=== PATIENT | female | born 1955 | race Caucasian/White ===

== ENCOUNTER → 2021-12-29 13:57 | Outpatient (CLI) | payer MEDICARE, MEDICAID, SELFPAY ==
[2021-12-29 14:42] LABS: COVID19 -Nasal RAPID Negative (Negative)
== END ==
PROVIDERS: Referring Provider Orthopaedic Surgery Orthopaedic Surgery of the Spine; Visit Provider Orthopaedic Surgery Orthopaedic Surgery of the Spine
DX: Z01.812 Encounter for preprocedural laboratory examination (principal); Z20.822 Contact with and (suspected) exposure to COVID-19
CPT/HCPCS: 87635; C9803

== ENCOUNTER 2021-12-31 10:24 | Inpatient (IN) | payer MEDICARE, MEDICAID, SELFPAY ==
[2021-12-24 12:29] VITALS: BMI 41.3
[2021-12-31] VITALS (16 sets, daily range): BP systolic 131–157; BP diastolic 77–97; PULSE 69–104; RESP 12–20; TEMP 36.1–36.4; O2SAT 90–97; BMI 41.5; BMI 43.7
--- NOTE | 2021-12-31 | DI.RAD.S_ITS ---
PROCEDURE: XR CERVICAL SPINE 2V OR 3V INDICATIONS: C4-5 C5-6 C6-7 ACDF TECHNIQUE: 3 view(s) of the cervical spine were acquired. COMPARISON: [facility], MR, MR CERVICAL SPINE WITHOUT CONTRAST, 06/05/2021, 12:08. FINDINGS: Intraoperative images demonstrating C4 through C7 anterior fusion is present. Hardware appears intact with good anatomic alignment. No visualized fracture. IMPRESSION: Intraoperative anterior fusion as above. Dictated by: Jayde Mayfield M.D. on 01/01/2022 at 11:51 Approved by: Jayde Mayfield M.D. on 01/01/2022 at 11:52
[2021-12-31] MEDS: LACTATED RINGERS 1,000 ML 42 ML IV ×3 (11:30→16:26)
--- NOTE | 2021-12-31 11:51 | PM.PREOP ---
Pre-operative Note COVID-19 COVID-19 status: Negative Result date/Date tested (Pos, Neg/Pending): 12/30/21 Criteria for continued procedure: Expected advancement of disease process, Possibility delay results in more complex future surgery or treatment, Increased loss of function, Continuing or worsening of significant or severe pain, Deterioration of the patient's condition or overall health and Delay expected to result in less-positive ultimate med/surg outcome Interval Note History & Physical reviewed/Exam performed by Physician: Yes Changes to H&P: No
[2021-12-31] MEDS: ACETAMINOPHEN 325 MG TABLET 975 MG PO (11:52)
[2021-12-31] MEDS: PREGABALIN 75 MG CAPSULE PO (11:52)
--- NOTE | 2021-12-31 12:47 | SUR.OPER ---
Supine, head on gel donut. Arms padded with gel pads, tucked at sides, towel roll under shoulders. Safety belt at thigh. Legs uncrossed. Gel pad under heels.
[2021-12-31] MEDS: CEFAZOLIN 2 GM/100 ML PREMIX 100 ML IV ×2 (13:50→21:19)
[2021-12-31] MEDS: EPINEPHrine 1 MG/ML INJ (15:00)
[2021-12-31] MEDS: BUPIVACAINE 0.25% (PF) VIAL 10 ML INJ (15:02)
--- NOTE | 2021-12-31 15:31 | P.CONS_ITS ---
History of Present Illness Consult details Date Patient Seen: 12/31/21 Chief complaint: Cervival Fusion Anterior Meds Home Medications and Allergies Home Medications Medication Instructions Recorded Confirmed Type acetaminophen 500 mg tablet 500 mg PO DAILY PRN Pain 12/24/21 12/31/21 History clonazepam 1 mg tablet 1 mg PO BID 12/24/21 12/31/21 History naproxen sodium 220 mg capsule 220 mg PO DAILY PRN Pain, headache 12/24/21 12/31/21 History (Aleve) pantoprazole 40 mg tablet,delayed 40 mg PO DAILY 12/24/21 12/31/21 History release sertraline 100 mg tablet 100 mg PO DAILY 12/24/21 12/31/21 History Allergies Allergy/AdvReac Type Severity Reaction Status Date / Time No Known Drug Allergies Allergy Verified 12/31/21 12:06 Exam Vital Signs (past 8 hours): - 12/31/21 11:53 Temperature 97.4 F L Pulse Rate 69 Respiratory Rate 18 Blood Pressure 152/77 H Pulse Oximetry 97 Oxygen Delivery Method Room Air Oxygen Delivery Method Room Air [facility] Medical History (Updated 12/25/21 @ 10:33 by Joselin Jain RN) Acid reflux Anxiety Breast cancer, left (~2019) Cervical spinal stenosis Depression Diverticulitis Easy bruisability High cholesterol Nerve pain Sciatica Surgical History (Updated 12/25/21 @ 10:33 by Joselin Jain RN) History of hysterectomy (2006) Hx of bilateral cataract extraction Hx of breast reduction, elective Hx of colonoscopy (06/06/21) Hx of tubal ligation Social History household members: significant other and none Tobacco & Substance Use Smoking Status: Never smoker alcohol intake: former Assessment & Plan Time Spent With Patient Critical Care time: I spent a total of [] minutes of critical care time on this patient's care today; this time is exclusive of procedural time.
--- NOTE | 2021-12-31 16:35 | PM.OP.1 ---
Operative Date/Time/Diagnoses Date of procedure: 12/31/21 Time of procedure: 13:50 Pre-op diagnosis: 1. C4-5, C5-6, C6-7 spinal stenosis 2. 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 C4-5 C5-6 C6-7 anterior cervical diskectomy and fusion 2. C4-5 C5-6 C6-7 anterior interbody cage placement 3. C4-5 C5-6 C6-7 anterior instrumentation with plate and screw placement in C4-C5-C6 and C7 vertebrae 4. Utilization of microsurgical technique and operating microscope Same procedure as scheduled: Yes Indications: Patient has been having chronic neck pain and worsening cervical radiculopathy and symptoms of myelopathy. Patient failed multiple conservative management with worsening pain weakness and numbness in her upper extremity. Patient has been having difficulty performing activity of daily living. After discussing risks benefits of treatment options, patient elected proceed with surgery. Surgeon: Lenin Tran Tumbler Machine Operator: Suzi Curtis Click Yes if Unassisted: No Anesthesia Type: General Operative Notes Closure Type: primary Specimen(s): none sent Prosthetic devices, grafts, tissues, transplants, or devices: Globus Extend Plate, Titanium cages Applied: catheter Estimated Blood Loss (mL): 40 Blood products transfused: none Procedure in detail: Patient was seen in the preoperative area. Risks and benefits of the surgery was discussed with the patient. Operative consent was obtained and placed in the chart. Patient was then taken to the operative room. Prophylactic antibiotic was given less than 0.5 hr prior to skin incision. General anesthesia was administered. Patient was placed into a supine position on her radiolucent table. Bilateral shoulders were taped down to allow proper C-arm imaging. Anterior cervical area was prepped and draped in a sterile fashion. Time-out was performed at this time. Using lateral C-arm imaging, the level between C4 and C7 was identified and marked on patient's neck. A oblique incision from midline towards medial border of sternocleidomastoid muscle was made. The platysma muscle was incised in line with skin incision. Metzenbaum scissor was used to develop the plane between the medial border of sternocleidomastoid and the strap muscles medially. The carotid sheath and its contents were identified and protected behind the hand-held retractor during the entire case. The plane between the carotid sheath and strap muscles was developed with Metzenbaum scissors. Dissection was made down to the level of the anterior cervical fascia. Longus colli muscle was incised on the anterior aspect of vertebral bodies bilaterally from C4-C7. Spinal needle was placed into the C4-5 disc space and confirmed with lateral C-arm imaging. Self-retaining retractors were then placed protecting the carotid sheath the sheath laterally and the esophagus medially while exposing the surgical field between C4-C7 vertebrae. Using microsurgical technique and operative microscope, anterior cervical diskectomy was performed at C4-5 C5-6 and C6-7 level. This was done by removing the disc material, removing the anterior and posterior osteophytes posterior longitudinal ligaments along with performing bilateral foraminotomies at all 3 levels. Patient was found to have severe central and foraminal stenosis at all 3 levels. Patient's stenosis was fully decompressed after decompression was completed. After the diskectomy was completed, 3 anterior interbody cages were obtained. The cages were packed with globus DBM bone grafting material. One cage each along with the bone grafting material was then packed into the interbody spaces from C4-C7 with one cage into each interbody level. Patient had large anterior osteophytes at C5-C6 and C7 vertebrae. Large osteophytes was removed using Leksell rongeur in order to place anterior cervical plate. After the cages were placed, the anterior cervical plate was stabilized to the C4-C7 vertebrae using 2 screws at each each level. Total 8 screws were placed. After confirming placement of the hardware with AP and lateral C-arm imaging, the screws were locked into the plate using the locking mechanism and torque limiting screwdriver. After the hardware was placed and confirmed with AP and lateral C-arm imaging, the wound was irrigated with sterile normal saline. Hemostasis was accomplished using bipolar cautery. Carotid sheath contents and the esophagus was inspected and visualized and identified to be well protected throughout the entire case prior to closure. Platysma muscle and the subcutaneous tissue was closed with 2-0 Vicryl. The skin was closed with 4-0 Monocryl and Steri-Strips. Patient tolerated the procedure well. Patient was transferred recovery room in stable condition. There were no complications. Complications: none Post-operative Condition: stable Disposition: PACU Plan for aftercare: Admit to inpatient hospital
[2021-12-31] MEDS: fentaNYL 100 MCG/2 ML INJ IV (17:33)
[2021-12-31] MEDS: OXYCODONE IR 5 MG TABLET PO ×2 (17:34→18:17)
[2021-12-31] MEDS: HYDROMORPHONE 2 MG INJ IV ×3 (17:35→17:45)
[2021-12-31] MEDS: ONDANSETRON 4 MG/2 ML INJ IV (18:43)
[2021-12-31] MEDS: SODIUM CHLORIDE 0.9% 1,000 ML 100 ML IV (18:43)
[2021-12-31] MEDS: HYDROMORPHONE 0.5 MG INJ IV (21:16)
[2021-12-31] MEDS: DOCUSATE 100 MG CAPSULE PO (21:19)
[2021-12-31] MEDS: SENNOSIDES 8.6 MG TABLET 17.2 MG PO (21:19)
[2021-12-31] MEDS: clonazePAM 0.5 MG TABLET 1 MG PO (21:19)
[2022-01-01 00:05] VITALS: PULSE 104; RESP 20; O2SAT 95
[2022-01-01] MEDS: HYDROMORPHONE 0.5 MG INJ IV ×4 (01:07→15:41)
[2022-01-01] MEDS: OXYCODONE IR 5 MG TABLET PO (02:01)
[2022-01-01] MEDS: hydrOXYzine pamoate 25 MG CAPSULE PO ×3 (02:02→18:24)
[2022-01-01] MEDS: SODIUM CHLORIDE 0.9% 1,000 ML 100 ML IV (05:08)
[2022-01-01] MEDS: ACETAMINOPHEN 325 MG TABLET 650 MG PO ×2 (05:09→18:24)
[2022-01-01] MEDS: CEFAZOLIN 2 GM/100 ML PREMIX 100 ML IV (05:10)
[2022-01-01] MEDS: BENZOCAINE/MENTHOL 1 LOZ PKT 1 EACH PO ×4 (06:12→19:33)
--- NOTE | 2022-01-01 07:21 | P.PN_ITS ---
Subjective Subjective Date Patient Seen: 01/01/22 Time Patient Seen: 07:21 Interval history: Patient is complaining of moderate to severe neck pain this morning. She has mild difficulty swallowing. She denies any numbness or tingling in her upper extremities. Her is at bedside. She has not worked with physical therapy or occupational therapy yet. She is still getting IV Dilaudid. Exam Vital Signs (past 8 hours): - 01/01/22 00:05 Pulse Rate 104 H Respiratory Rate 20 Pulse Oximetry 95 Oxygen Flow Rate 3 Oxygen Delivery Method Nasal Cannula Oxygen Flow Rate 3 Narrative Exam Narrative: -pleasant 66-year-old female, resting comfortably in bed, no acute distress. Soft cervical collar is in place, dressing is clean, dry, intact. No surrounding erythema or induration. Bilateral upper extremity: Motor functions are grossly intact, sensation is grossly intact to light touch. [facility] Medical History Acid reflux Anxiety Breast cancer, left (~2018) Cervical spinal stenosis Depression Diverticulitis Easy bruisability High cholesterol Nerve pain Sciatica Surgical History History of hysterectomy (2006) Hx of bilateral cataract extraction Hx of breast reduction, elective Hx of colonoscopy (06/06/21) Hx of tubal ligation Social History household members: significant other and none Smoking Status: Never smoker alcohol intake: former Assessment & Plan Post-op Postoperative Procedures: Procedures Operation Date: 12/31/21 13:15 Actual Procedure Side Surgeon p C4-5, C5-6, C6-7 ACDF w. anterior instrumentation Lenin Tran MD Postoperative day: 1 Postoperative status narrative: -stable status post C4-5, C5-6, C6-7 ACDF Postoperative plan narrative: -mobilize with PT/OT. No bending, lifting, twisting x6 weeks. -continue with multimodal pain management. Encourage p.o. pain medications -removed urinary catheter once mobilizing well. -disposition: Likely home tomorrow with her , possibly home today if she does very well with physical therapy and is able to wean off her nasal cannula oxygen. Quality VTE Deep Vein Thrombosis/Pulmonary Embolism Present on Admission: No
[2022-01-01] MEDS: SERTRALINE 50 MG TABLET 100 MG PO (08:57)
[2022-01-01] MEDS: OXYCODONE IR 10 MG TABLET PO ×3 (08:57→21:27)
[2022-01-01] MEDS: PANTOPRAZOLE DR 40 MG TABLET PO (08:58)
[2022-01-01] MEDS: clonazePAM 0.5 MG TABLET 1 MG PO ×2 (08:58→21:28)
[2022-01-01] MEDS: DOCUSATE 100 MG CAPSULE PO ×2 (08:58→21:28)
[2022-01-01 09:00] VITALS: BP 138/65; PULSE 81; RESP 18; TEMP 36.5; O2SAT 95
[2022-01-01 09:10] LABS: Hematocrit 34.2 % (36-46); Hemoglobin 11.7 g/dL (12.0-16.0)
--- NOTE | 2022-01-01 11:00 | PT.IIE ---
Current Diagnoses Other spondylosis with myelopathy, cervical region (12/31/21) Spinal stenosis, cervical region (12/31/21) Surgery Performed Operation Date: 12/31/21 13:15 Actual Procedures p C4-5, C5-6, C6-7 ACDF w. anterior instrumentation - Lenin Tran MD Surgical History (Last Reviewed 01/01/22 @ 07:22 by Suzi Curtis PA-C) History of hysterectomy (2006) Hx of bilateral cataract extraction Hx of breast reduction, elective Hx of colonoscopy (06/06/21) Hx of tubal ligation Medical History (Last Reviewed 01/01/22 @ 07:22 by Suzi Curtis PA-C) Acid reflux Anxiety Breast cancer, left (~2018) Cervical spinal stenosis Depression Diverticulitis Easy bruisability High cholesterol Nerve pain Sciatica Physical Therapy Inpatient Evaluation/Re-Eval M1 PT/OT-IP Prior Functional Status Start: 01/01/22 10:40 Freq: Status: Active Protocol: Document 01/01/22 10:40 BC (Rec: 01/01/22 10:59 [id number]) Medical Review Prior Functional Status Medical History Reviewed Yes Diet/Fluid Consistency Regular Communication WNL Mobility and Gait Independent Activities of Daily Living and IADL's Independent Prior Functional Level (Other details) Lives alone, has SO that lives nearby and can assist with care at d/c. GENEVA was fully independent, no DME, drives and provides all of her own self care. Social History Household Members significant other,none Living Arrangements Apartment/Condo Number of Floors (Floors) One Floor Number of Stairs To Enter/Railing? 4 steps to enter with railing Home Environment Standard Height Toilet,Tub/ Shower Additional Social History Comment Bed is very tall, uses a step ladder at baseline to get in/ out of bed. M2 PT-IP Current Condition Start: 01/01/22 10:40 Freq: Status: Active Protocol: Document 01/01/22 10:40 BC (Rec: 01/01/22 10:59 BC [id number]) Physical Therapy Current Condition Current Condition Evaluation Date 01/01/22 Treatment Diagnosis difficulty with ambulation Onset Date 12/31/21 M3 PT-IP Subjective Start: 01/01/22 10:40 Freq: Status: Active Protocol: Document 01/01/22 10:40 BC (Rec: 01/01/22 10:59 [id number]) Subjective Physical Therapy Visit Type Type Initial Evaluation Visit Start Time 10:00 Visit Stop Time 10:35 Total Visit Minutes 35 Physical Therapy Visit Comments Patient Comments Pain is tolerable and does not want any more pain medication . Patient Goals To get rid of catheter. Therapy Pain Assessment Pain When Pain Assessed At Rest Pain Present Pain Present Pain Reported Location Back Scale Used Numeric (0 - 10) Neck Intensity 8 Scale Used Numeric (0 - 10) Description Tightness Pain Management Techniques Timing of Activity with Medications M4 PT-IP Mobility and Gait Start: 01/01/22 10:40 Freq: Status: Active Protocol: Document 01/01/22 10:40 BC (Rec: 01/01/22 10:59 [id number]) PT-Bed Mobility Assessment Rolling Type of Rolling Log Rolling,Roll to Right Level of Assist Contact Guard Assistance Supine to Sit Supine to Sit Moderate Assistance Scooting Scooting to Edge of Bed Contact Guard Assistance PT-Transfer Assessment Sit to and From Stand Sit to and from Stand Standby Assistance,Contact Guard Assistance Equipment Transfer Assistive Device Gait Belt,Front Wheeled Walker Transfers Transfer Destination Chair Transfer Technique Stand Step Pivot Transfer Ability Level of Assist Standby Assistance Comments Mobility Comments Following cues well for log roll transfer Gait Assessment Gait Gait Assistance Required: Standby Assistance,Contact Guard Assist Distance (Feet) 30 Assistive Devices Assistive Device Gait Belt,Front Wheeled Walker Gait Deviations General Gait Pattern Decreased Feet Clearance,Wide Based Gait Factors Limiting Gait Function Factors Limiting Gait Function Decreased Activity Tolerance, Pain,Poor Balance Comments Gait Comments Pt reporting increasing neck tension with ambulation. Soft collar donned throughout. Stopped ambulation 1x for standing shoulder rolls to reduce scapular elevation noted with ambulation. PT-Balance Assessment Sitting Balance and Reactions Static Sitting Balance Ability Good Dynamic Sitting Balance Ability Good Standing Balance and Reactions Static Standing Balance Ability Fair Dynamic Standing Balance Ability Fair Device Used FWW; eyes often closed due to lethargy which will alter balance. M5 PT-IP Objective Assessments Start: 01/01/22 10:40 Freq: Status: Active Protocol: Document 01/01/22 10:40 BC (Rec: 01/01/22 10:59 [id number]) Orientation Orientation/Cognition Level of Alertness Lethargic Orientation Name,Birthday,Date,Place, Situation Safety Awareness Decreased Safety Awareness Comments Decreased safety awareness purely related to lethargy in session. Likely need for follow up education as her alertness improves. Gross Range of Motion Upper Extremity ROM Assessment Within Functional Limits Impairments Functional BLE wrist, elbow OT to assess full UE needs Lower Extremity ROM Assessment Within Functional Limits Strength Lower Extremity Strength Assessment Within Functional Limits Hip 4 Knee 4 Ankle 4 Comments Strength Comments Intact motor control BLE myotomes Coordination Assessment Gross Coordination Gross Coordination WNL Assessment Coordination Comments slowed thumb/finger approximation likely due to lethargy. Sensation Assessment Sensation Light Touch Intact Comments Sensation Comments Pt denies numbness/tingling in RUE that she experienced pre- surgery Muscle Tone Muscle Tone WNL Yes M6 PT-IP Treatment Start: 01/01/22 10:40 Freq: Status: Active Protocol: Document 01/01/22 10:40 BC (Rec: 01/01/22 10:59 [id number]) Physical Therapy Treatment Exercises Knee ROM Measurement other exercises: standing shoulder rolls fwd/bkwd x10 Education Education Provided Precautions,Post-Op Packet, Safety Other Treatments Other Treatment Performed Education provided to Pt and SO, Feliberto. H/O reviewed with Feliberto regarding post op precautions /info and log roll technique. Feliberto present throughout session today observing and asking questions regarding no BLT, log roll, and how to assist with transfers. M7 PT-IP Assessment and Plan Start: 01/01/22 10:40 Freq: Status: Active Protocol: Document 01/01/22 10:40 BC (Rec: 01/01/22 10:59 [id number]) PT Summary Assessment and Plan Potential Rehabilitation Potential Excellent Status of Condition at Evaluation Stable Summary Impairments Pain,Transfers,Gait,Activity Tolerance Progress Towards Goals Progressing Toward Goals Assessment Summary Pt admitted following C4-C7 ACDF. Prior to surgery Pt was experiencing severe neck and head pain and numbness/ tingling into RUE with reduced coordination of RUE for ADLs. Pt is R handed. She lives I' ly in an apt and has a SO of several years, Feliberto, who lives nearby and can stay with her at discharge to assist. She owns no DME for ambulation or bathroom needs. She has 4 steps with railing to enter her home. Pt CLOF is grossly SBA to CGA for transfers and ambulation. Bed mobility required mod A to reduce pushing through BUE's on log roll technique today. Pt is motivated and compliant with PT recommendations. Her vitals were stable on room air O2 ranged from 96-93% and BP 135/77 with sitting posture. Pt was able to ambulate 30' needing CGA for safety with walker positioning and cues to reduce scapular elevation. Pt remained seated in chair with call light in reach and SO present. Nsng aware of Pt being up and that supplemental O2 is currently off with O2 sat at 93-94% after gait. Recommend d/c home with SO support. Anticipate d/c after therapy is able to review stairs with Pt and further discuss bed mobility with her bed at home being very tall. Primary limitation to therapy this Am was Pt lethargy. Goals Bed Mobility Goal Standby Assistance Transfer Goal Standby Assistance Gait Goal Standby Assistance,Front Wheel Walker Gait Distance 100 Other Goals Ascend/descend 4 steps with railing and CGA. Days to Meet Goals 3 Frequency of Treatment Frequency Of Treatment Twice a Day Treatment Plan Physical Therapy Treatment Plan Bed Mobility Training,Transfer Training,Gait Training, Therapeutic Exercise,Balance Retraining,Post Op Education, Discharge Planning,Hot or Cold Pack,Neuromuscular Re-ed Precautions Cervical Spine Precautions Soft Collar for Comfort,No Heavy Lifting,Log Roll Recommendations To Nursing Amount of Assist Needed Standby Assistance,1 Person Assist Discharge Recommendations PT Discharge Recommendations Home with Assistance Equipment Needed for Home Before Front wheeled walker Discharge Transportation Needs at Discharge Private Vehicle
--- NOTE | 2022-01-01 11:08 | OT.IPNOTE ---
Pt just getting back to bed and wanting to be seen later for OT eval. To check on the pt later.
--- NOTE | 2022-01-01 11:09 | CM.DANOTE ---
Initial DCP Assessment Note Pt is a 66 yo female, resident of [place], POD#1 [address] cervical fusion by Dr Tran PCP: Feli Vicente Payer: MCR/KUSH Reviewed chart, pt discussed in multidisciplinary rounds this morning. Therapy has cleared pt for return home w/SO to assist and pt has planned for home, DC order from Ortho expected this afternoon or tomorrow AM Patient confident about her return home w/ SO No barriers identified at this time to patient's safe discharge home w/family to assist; close outpatient f/u recommended. JESUS Alejandro Discharge Planning/Care Management CM Discharge Assessment Start: 01/01/22 11:05 Freq: Status: Active Protocol: Document 01/01/22 11:05 GONZÁLEZ (Rec: 01/01/22 11:09 [email or web address] [id number]) Discharge Planning Assessment Assigned Director Law Enforcement JESUS Vasques DPOA/Assigned Designee Name CHARLEE Whaley Contact Information [phone] Advance Directives? Yes Advance Directives on File No History Provided By Patient,Significant Other, Medical Record Prior Living Arrangements Apartment/Condo Household Members significant other,none Type of transporation used prior to Drives own vehicle admit Independent with ADL's Yes Is patient alert and oriented? Yes Barriers to Discharge No Comment DC home w/SO expected upon DC Discharge Plan Home Referrals Initiated None needed
--- NOTE | 2022-01-01 13:13 | PT-IP ANOTE ---
Attempted to see pt this PM, pt very groggy and not agreeable to get out of bed at this time. Will f/u tomorrow.
--- NOTE | 2022-01-01 13:18 | OT.IPNOTE ---
Attempted to see pt for OT eval again in PM. Pt very sleepy, groggy and requesting to do OT eval tomorrow.
[2022-01-01 15:00] VITALS: BP 135/75; PULSE 93; RESP 19; TEMP 36.4; O2SAT 96
[2022-01-01 20:15] VITALS: BP 129/58; PULSE 91; RESP 18; TEMP 36.7; O2SAT 91
[2022-01-01] MEDS: SENNOSIDES 8.6 MG TABLET 17.2 MG PO (21:28)
[2022-01-02 00:50] VITALS: BP 138/57; PULSE 90; RESP 14; TEMP 36.2; O2SAT 94
[2022-01-02] MEDS: OXYCODONE IR 10 MG TABLET PO (03:47)
[2022-01-02] MEDS: ACETAMINOPHEN 325 MG TABLET 650 MG PO ×2 (03:47→19:03)
[2022-01-02 04:15] VITALS: BP 147/76; PULSE 81; RESP 18; TEMP 36.1; O2SAT 94
--- NOTE | 2022-01-02 05:07 | PC.NURSE ---
Bladder scanned @ 0305noted 224 cc, @ 0330 voided 100 cc in the bed hill. Slept most of the night & not drinking much water. Will monitor.
[2022-01-02] MEDS: BENZOCAINE/MENTHOL 1 LOZ PKT 1 EACH PO ×3 (08:43→19:41)
[2022-01-02] MEDS: OXYCODONE IR 5 MG TABLET PO ×2 (08:44→16:45)
[2022-01-02] MEDS: SERTRALINE 50 MG TABLET 100 MG PO (08:45)
[2022-01-02] MEDS: PANTOPRAZOLE DR 40 MG TABLET PO (08:46)
[2022-01-02] MEDS: clonazePAM 0.5 MG TABLET 1 MG PO (08:46)
[2022-01-02] MEDS: DOCUSATE 100 MG CAPSULE PO ×2 (08:46→20:22)
--- NOTE | 2022-01-02 09:00 | P.PN_ITS ---
Subjective Subjective Date Patient Seen: 01/02/22 Time Patient Seen: 09:00 Interval history: Patient's pain is 8/10. Patient states her throat hurts. She has difficulty swallowing solids because of the pain. She has been able to take her oral medications and decent applesauce. She denies any choking. She has no shortness of breath or chest pain. Denies fever or chills. Exam Vital Signs (past 8 hours): - 01/02/22 04:15 Temperature 97.0 F L Pulse Rate 81 Respiratory Rate 18 Blood Pressure 147/76 H Pulse Oximetry 94 Oxygen Flow Rate 0 Oxygen Delivery Method Room Air Oxygen Flow Rate 0 Narrative Exam Narrative: 66-year-old female resting comfortably in bed in no apparent distress. Soft collar on. Dressing Clean, dry, intact.. Neurovascular status is intact bilate ral upper extremities. Const General: cooperative Nutritional Appearance: average body habitus Orientation: alert Chest Chest: normal inspection of the chest Resp Effort & Inspection: normal respiratory effort and able to speak in complete sentences Objective Labs Result Diagrams: 01/01/22 08:37 Labs: Laboratory Results - last 24 hr 01/01/22 08:37 Hgb 11.7 L Hct 34.2 L PFSH Medical History Acid reflux Anxiety Breast cancer, left (~2018) Cervical spinal stenosis Depression Diverticulitis Easy bruisability High cholesterol Nerve pain Sciatica Surgical History History of hysterectomy (2006) Hx of bilateral cataract extraction Hx of breast reduction, elective Hx of colonoscopy (06/06/21) Hx of tubal ligation Social History household members: significant other and none Smoking Status: Never smoker alcohol intake: former Assessment & Plan Post-op Postoperative Procedures: Procedures Operation Date: 12/31/21 13:15 Actual Procedure Side Surgeon p C4-5, C5-6, C6-7 ACDF w. anterior instrumentation Lenin Tran MD Postoperative day: 2 Postoperative status: marginal pain control Postoperative status narrative: Status post C4-C5, C5-C6, C6-C7 ACDF December 31, 2021 Postoperative plan narrative: Continue PT OT. Patient not able to participate in occupational therapy yesterday due to being sleepy, groggy and requesting to do eval today. Multimodal pain management Soft collar for comfort Routine wound care Speech, swallow eval. Disposition likely home tomorrow Quality VTE Deep Vein Thrombosis/Pulmonary Embolism Present on Admission: No
[2022-01-02 09:15] VITALS: BP 139/73; PULSE 93; RESP 16; TEMP 36.9; O2SAT 91
--- NOTE | 2022-01-02 09:40 | SLP.IPNOTE ---
Attempted clinical swallow evaluation with pt at 9:35. Pt stated she is trying to sleep and requested STRAIGHT KNIFE MACHINE CUTTER return later. Will try this afternoon.
--- NOTE | 2022-01-02 10:45 | PT-IP ANOTE ---
Attempted to see pt at 10:45, pts in room and pt barely able to open eyes to respond, however refused PT due to pain and fatigue. HOUSE OFFICER confirms pt ambulated to toilet this AM. Will check on pt in PM.
--- NOTE | 2022-01-02 11:38 | OT.IP.EVAL ---
Current Diagnoses Other spondylosis with myelopathy, cervical region (12/31/21) Spinal stenosis, cervical region (12/31/21) Surgery Performed Operation Date: 12/31/21 13:15 Actual Procedures p C4-5, C5-6, C6-7 ACDF w. anterior instrumentation - Lenin Tran MD Past Medical History (Last Reviewed 01/02/22 @ 09:02 by Rah Grayson PA-C) Acid reflux Anxiety Breast cancer, left (~2019) Cervical spinal stenosis Depression Diverticulitis Easy bruisability High cholesterol Nerve pain Sciatica Surgical History (Last Reviewed 01/02/22 @ 09:02 by Rah Grayson PA-C) History of hysterectomy (2006) Hx of bilateral cataract extraction Hx of breast reduction, elective Hx of colonoscopy (06/06/21) Hx of tubal ligation Occupational Therapy Inpatient Evaluation/Re-Eval M1 PT/OT-IP Prior Functional Status Start: 01/01/22 10:40 Freq: Status: Active Protocol: Document 01/02/22 11:38 [facility] (Rec: 01/02/22 12:36 [facility] [id number]) Medical Review Prior Functional Status Medical History Reviewed Yes Diet/Fluid Consistency Regular Communication WNL Mobility and Gait Independent Activities of Daily Living and IADL's Independent Prior Functional Level (Other details) Lives alone, has SO that lives nearby and can assist with care at d/c. PLOF was fully independent, no DME, drives and provides all of her own self care. Social History Household Members significant other,none Living Arrangements Apartment/Condo Number of Floors (Floors) One Floor Number of Stairs To Enter/Railing? 5 steps with right rail to get to the sidewalk outsiedof the apartment and then another 6 steps with right rail to get into the apartment. Home Environment Standard Height Toilet,Tub/ Shower Additional Social History Comment Pt has a very tall bed. Pt's significant other states that she can sleep on the sofa if needed. M2 OT-IP Current Condition Start: 01/02/22 12:15 Freq: Status: Active Protocol: Document 01/02/22 11:38 [facility] (Rec: 01/02/22 12:36 [facility] [id number]) Occupational Therapy Current Condition Current Condition Evaluation Date 01/02/22 Treatment Diagnosis S/p C4-5, C5-6, C6-7 ACDF Diagnosis Onset Date 12/31/21 Post Operative Precautions Cervical Spine Precautions Soft Collar for Comfort,No Heavy Lifting,Log Roll M3 OT- IP Subjective and Pain Start: 01/02/22 12:15 Freq: Status: Active Protocol: Document 01/02/22 11:38 [facility] (Rec: 01/02/22 12:36 [facility] [id number]) OT- Subjective Occupational Therapy Visit Type Type Initial Evaluation Visit Start Time 11:10 Visit Stop Time 11:38 Total Visit Minutes 28 Occupational Therapy Visit Comments Patient Comments Pt just with nursing aid and S .O and just getting back to bed as OT coming to see pt for OT eval. Patient/Caregiver Goals To go home. OT Pain Assessment Pain When Pain Assessed At Rest Pain Present Pain Present Pain Reported M4 OT- IP ADL's Start: 01/02/22 12:15 Freq: Status: Active Protocol: Document 01/02/22 11:38 [facility] (Rec: 01/02/22 12:36 [facility] [id number]) OT [id number]-Vsyx-Railcbm Comments OT Self-Feeding Comments Pt's SO giving her ice chips and educated to sit upright, during meals to have softer foods and chew food thoroughly . Per pt states has pain therefore making it hard for her to swallow. OT ADL-Grooming Comments OT Grooming Comments not performed OT ADL-Oral Care Comments Oral Care Comments not performed Educated to best to spit into a cup for oral care needs. OT ADL-Dressing Comments OT Dressing Comments Not performed. OT ADL-Toileting Comments OT Toileting Comments Not performed OT ADL-Bathing Comments OT Bathing Comments Pt's SO states pt has difficulty to get into and out of the tub at home and suggested use of tub bench. M5 OT- IP IADL's Start: 01/02/22 12:15 Freq: Status: Active Protocol: Document 01/02/22 11:38 [facility] (Rec: 01/02/22 12:36 [facility] [id number]) OT-Instrumental Activities of Daily Living Deficits IADL Deficits Identified Deficits Home Safety Awareness Home Safety Comments Pt very groggy and drowsy and at this time will benefit from 24/7 assist. M6 OT- IP Functional Cognition Start: 01/02/22 12:15 Freq: Status: Active Protocol: Document 01/02/22 11:38 [facility] (Rec: 01/02/22 12:36 [facility] [id number]) Cognitive Factors Limiting Selfcare Function Cognitive Ability Level of Alertness Drowsy Patient Orientation Name,Place,Situation Attention Span Ability Capable of Focused Attention, Unable to Sustain Attention Ability to Follow Commands Able to Follow One Step Commands with Increased Time, Able to Follow One Step Commands with Repetition Cognitive Comments Cognitive Assessment Comments Pt very drowsy and having difficulty to stay awake and needing simple concrete cues to follow. OT- Vision and Hearing OT- Hearing Assessment OT- Hearing Assessment WFL M7 OT- IP Mobility and Balance Start: 01/02/22 12:15 Freq: Status: Active Protocol: Document 01/02/22 11:38 [facility] (Rec: 01/02/22 12:36 [facility] [id number]) OT- Bed Mobility Assessment Sit to Supine Sit to Supine Assist Minimal Assistance OT-Transfer Assessment Sit to and From Stand Sit to and from Stand Minimal Assistance Comments Mobility Comments Educated to SO best to use gait belt for mobility needs for safety and FWW, as now pt needing more assist as not feeling well. JEREMÍAS to stand and help to take small side steps to the head of the bed. OT- Balance Assessment Sitting Balance and Reactions Static Sitting Balance Ability Fair Standing Balance and Reactions Static Standing Balance Ability Fair Dynamic Standing Balance Ability Poor M8 OT- IP Objective Assessments Start: 01/02/22 12:15 Freq: Status: Active Protocol: Document 01/02/22 11:38 [facility] (Rec: 01/02/22 12:36 [facility] [id number]) OT-Muscle Tone Assessment Muscle Tone WNL Yes M9 OT- IP Assessment and Plan Start: 01/02/22 12:15 Freq: Status: Active Protocol: Document 01/02/22 11:38 [facility] (Rec: 01/02/22 12:36 [facility] [id number]) OT Summary Assessment and Plan Potential Rehabilitation Potential Good Analytic Complexity at Evaluation Low Summary OT Impairments Pain,Balance,Functional Mobility,Self-Feeding,Grooming ,Dressing,Toileting,Bathing, Toilet Transfers,Shower Transfers,Activity Tolerance Progress Towards Goals Slow Progress due to Medical Issues,Slow Progress due to Activity Tolerance Assessment Summary Pt low complexity and main barriers are step, decreased activity tolerance and having difficulty to stay awake at this time. Pt has a supportive SO to assist at home and suggested pt get tub bench and possibly a BSC for home use. Goals Self-Feeding Goal Independent Grooming Goal Independent Dressing Goal Independent Toileting Goal Independent Bathing Goal Independent Toilet Transfer Goal Independent Shower Transfer Goal Independent Patient/Caregiver Education Goal Caregiver Independent Assisting Patient Days to Meet Goals 5 Frequency of Treatment Frequency Of Treatment Once a Day Treatment Plan OT Treatment Plan ADL Training,Functional Mobility,Patient/Family Education,Discharge Planning Other Treatment Recommendations and Next caregiver training Treatment Focus Discharge Recommendations OT Discharge Recommendations Home with 24/ Assist Available Home Equipment Needs tub bench, BSC? Transportation Needs at Discharge Private Vehicle
--- NOTE | 2022-01-02 12:56 | PT-IP ANOTE ---
Pt still not alert enough to perform therapy and also refuses due to fatigue.
--- NOTE | 2022-01-02 13:13 | ST.IPCSEOM ---
Visit Care Team Role Provider Type Feli Vicente MD Primary Care Provider Non-Staff Specialty: Medical Address: [address] [place], [address] Email: Lenin Tran MD Admit Provider Physician Attending Provider Referring Provider Specialty: Orthopedics Orthopedic Surgery Address: [address] [place] [address], [id number] Email: [email or web address] Current Diagnoses Other spondylosis with myelopathy, cervical region (12/31/21) Spinal stenosis, cervical region (12/31/21) Past Medical History (Last Reviewed 01/02/22 @ 09:02 by Rah Grayson PA-C) Acid reflux (Medical) Anxiety (Medical) Breast cancer, left (Medical ~2018) Radiation therapy only Cervical spinal stenosis (Medical) Depression (Medical) Diverticulitis (Medical) Admit to [facility] 06/20/21-06/23/21 Easy bruisability (Medical) High cholesterol (Medical) Nerve pain (Medical) Sciatica (Medical) Speech-Language Pathology Swallow Evaluation POWDER GUARD Clinical Swallow Evaluation Start: 01/02/22 12:30 Freq: Status: Active Protocol: Document 01/02/22 12:30 [facility] (Rec: 01/02/22 12:50 [facility] [id number]) Clinical Swallow Evaluation Session Time Visit Start Time 12:05 Visit Stop Time 12:30 Total Visit Minutes 25 Visit Information Visit Number Initial Evaluation Setting Assessment Location Acute Care Visit Type Note Type Initial evaluation Next Note Type Next Note Type Treatment Note Patient Information Identification Type Name History Janae is a 65-year-old woman who received ACDF surgery of C4-C7 on 12/31/[address] Tran. Following surgery, pt reported moderate to severe neck pain and mild difficulty swallowing due to pain in throat. Per chart history, she has been able to take medications orally with applesauce. Subjective Observations Pt was resting semi-reclined in bed with eyes closed with POWDER GUARD arrived. Her was at bedside and noon meal trays were being delivered. Pt agreed to participate in PO trials with lunch and was positioned to fully upright position for meal. Reported by Patient Other Symptoms Difficulty swallowing liquids, Difficulty swallowing pills, Difficulty swallowing solids, Pain on swallowing Current Diet Regular,Thin liquids Baseline Feeding Method Independent in self-feeding Objective Assessment Mental Status Responsive,Cooperative Comment Did not complete OME at this time due to fatigue levels. Pt 's features were symmetrical at rest and in limited motion observed during interaction. She reported no difficulty with eating or swallowing, that pain was limiting oral intake. Will complete OME at later date. Food and Liquid Trials Position During Assessment Upright (90 degrees),In bed Liquids Trialed Thin Solids Trialed Puree,Regular Administration Type Tea spoon,Cup single sip,Straw ,Self-feeding,Needs some assistance Oral Impairment Within normal limits Oral Phase Comments Pt exhibited no anterior loss of bolus. Mastication was effective, though slowed, with pt taking breaks to take breaths in between episodes of chewing cut up turkey. She exhibited no difficulty with mashed potatoes or water through straw cup. Minimal residue remaining after swallow. Pharyngeal Impairment Within functional limits Pharyngeal Phase Comments Pt reported turkey would not go down and was given water to help wash it down. Pt exhibited wet/gurlgy vocal quality following this drink of thin liquid through straw cup. When second trial of thin liquid was completed, no overt signs or symptoms of aspiration were observed. Silent aspiration cannot be ruled out with bedside swallow evaluation and pt is not a good candidate for modified barium swallow at this time due to fatigue and pain on swallowing. No overt signs or symptoms of aspiration with mashed potatoes. Pt reported pain on swallowing with all PO trials, indicating meat was the worst with reduced pain on mashed potatoes and minimal to mild pain with water. Fatigue/Endurance Moderate fatigue Comment Pt presents with moderately severe fatigue, likely impacted by pain with swallowing. Pt was observed to take breaks during chewing episodes to fully masticate a bite of turkey. She stopped eating after 2 bites of mashed potatoes, 1 bite of turkey, and 2 drinks of thin liquid through a straw cup. Findings Contributing Factors to Swallow Reduced alertness or attention Impairment ,Mastication inefficiency Based on Family support,Age, Comorbidities,Duration of symptoms/severity Comment Pt presents with mild moderate oropharyngeal phase dysphagia , characterized by inefficient mastication of solids and food getting stuck in addition to pain with swallowing. Pain likely increases fatigue when eating, which negatively impacts pt's ability to meet nutrition and hydration needs. Given pain is reduced with softer textures, it is recommended pt have puree textures with thin liquids until pain and fatigue are reduced. Unable to rule out silent aspiration at this time and pt is not a good candidate for modified barium swallow study given pain and fatigue levels. Will continue to monitor and advance diet as indicated. Impact on Safety and Functioning Risk for aspiration,Risk for inadequate nutrition/hydration Recommendations Instrumental Assessment No Swallowing Treatment Yes Recommended Solids Puree Recommended Liquids Thin Safety Precautions/Swallowing Feed only when alert,Remain Recommendations upright (90 degrees) during all oral intake,Upright position at least 30 minutes after meals Medication Recommendations Crushed in Carrier Education Patient/Caregiver Education Described results of evaluation,Patient expressed understanding of evaluation, Patient expressed agreement with goals & treatment plans, Family/caregivers expressed understanding of evaluation, Family/caregivers expressed agreement with goals & treatment plans,Patient expressed understanding of safety precautions,Patient expressed understanding of feeding recommendations,Family /caregivers expressed understanding of safety precautions,Family/caregivers expressed understanding of feeding recommendations, Patient requires further education/training,Family/ caregivers require further education/training Goals Short-term Goals 1. The pt will perform safe swallow strategies with oral intake independently to reduce risk of aspiration. 2. The pt will perform exercises to increase strength , coordination, and ROM of swallow musculature independently to reduce risk of aspiration and increase comfort with oral intake. Long-term Goals The pt will safely tolerate least restrictive diet to meet her nutrition and hydration needs.
[2022-01-02 13:15] VITALS: BP 138/71; PULSE 90; RESP 18; TEMP 37; O2SAT 97
[2022-01-02] MEDS: hydrOXYzine pamoate 25 MG CAPSULE PO (16:49)
--- NOTE | 2022-01-02 16:57 | PC.NURSE ---
DayShift Pt used her call light and notified RN that she was in pain, Pt was crying and having rapid shallow breaths, RN asked if she was okay?, Pt stated that she just received a phone call and found out her dog just , her cat attacked her dog and her took the dog to [facility] and they had to put the dog down due to injuries. Pt received 5mg Oxy and 25mg Vistaril Per MAR for pain control. Pt was able to take the medications whole orally with apple sauce. Pt is back in bed with bed alarm on and call light within reach and corded telephone within easy reach on food tray. Pt reminded to use call light if wished to get up for restroom use or for any other concerns.
[2022-01-02 19:30] VITALS: BP 154/90; PULSE 89; RESP 18; TEMP 36.7; O2SAT 93
[2022-01-02] MEDS: SODIUM CHLORIDE 0.9% FLUSH 10 ML IV (20:22)
[2022-01-02] MEDS: SENNOSIDES 8.6 MG TABLET 17.2 MG PO (20:22)
--- NOTE | 2022-01-02 21:48 | PC.NURSE ---
Patient is alert and oriented but soft-spoken. Complains of feeling crappy stating she is weak with sore throat and headache. Was medicated at shift change with Tylenol and states pain has improved to 2/10. Provided with Cepacol lozenge and ice pack. Breath sounds diminished but CTA with RA sat of 93%; has poor respiratory effort so encouraged use of I.S. HRR but has elevated BP of 154/90. Denies nausea. BT hypoactive but is passing flatus. Denies dysuria but is voiding frequently and is continent. Is able to move herself in bed. Up to bathroom with SBA and seems to have generalized weakness. Noted to seem weaker with movement when spouse in room. CMS is intact bilateral UE. Refusing SCD's so reminded to ankle wave and instructed on prevention of DVT. Has some swallowing difficulty but no noted coughing/choking when given meds whole in applesauce. Fall risk score is moderate and bed alarm is activated.
[2022-01-03 00:57] VITALS: BP 124/61; PULSE 81; RESP 18; TEMP 36.6; O2SAT 93
[2022-01-03] MEDS: BENZOCAINE/MENTHOL 1 LOZ PKT 1 EACH PO ×2 (01:15→08:07)
[2022-01-03 04:43] VITALS: BP 161/84; PULSE 80; RESP 18; TEMP 36.7; O2SAT 96
[2022-01-03] MEDS: OXYCODONE IR 10 MG TABLET PO (05:22)
[2022-01-03 07:30] VITALS: BP 138/73; PULSE 78; RESP 17; TEMP 36.3; O2SAT 94
[2022-01-03] MEDS: DOCUSATE 100 MG CAPSULE PO (08:07)
[2022-01-03] MEDS: ACETAMINOPHEN 325 MG TABLET 650 MG PO (08:07)
[2022-01-03] MEDS: SERTRALINE 50 MG TABLET 100 MG PO (08:07)
[2022-01-03] MEDS: PANTOPRAZOLE DR 40 MG TABLET PO (08:07)
[2022-01-03] MEDS: OXYCODONE IR 5 MG TABLET PO ×2 (08:07→14:01)
[2022-01-03] MEDS: SODIUM CHLORIDE 0.9% FLUSH 10 ML IV (08:08)
--- NOTE | 2022-01-03 08:42 | PM.DS.1 ---
History of Present Illness History of Present Illness Date Patient Seen: 01/03/22 Time Patient Seen: 08:42 Chief complaint: Neck pain Narrative: Neck pain is moderate this morning. Denies fever or chills. No nausea or vomiting. Patient has her home to assist her. Discharge Providers Provider Date of admission: 12/31/21 10:24 Discharge Date: 01/03/22 Primary care physician: Feli Vicente MD Consults: 12/31/21 18:27 Consult to Occupational Therapy Evaluate & Treat Comment: Physician Instructions: Evaluate and treat Consult to Physical Therapy Evaluate & Treat Comment: Physician Instructions: Evaluate and Treat 01/02/22 09:00 Consult to Speech Therapy Evaluate & Treat Comment: swallow eval. Physician Instructions: Evaluate and treat Discharge provider: Rah Grayson PA-C Summary Hospital Course Discharge Diagnosis: 1. C4-5, C5-6, C6-7 spinal stenosis 2. C4-5, C5-6, C6-7 spondylosis with myelopathy Hospital Course: 1.? C4-5 C5-6 C6-7 anterior cervical diskectomy and fusion 2.? C4-5 C5-6 C6-7 anterior interbody cage placement 3.? C4-5 C5-6 C6-7 anterior instrumentation with plate and screw placement in C4-C5-C6 and C7 vertebrae 4.? Utilization of microsurgical technique and operating microscope Same procedure as scheduled: Yes Indications: Patient has been having chronic neck pain and worsening cervical radiculopathy and symptoms of myelopathy. Patient failed multiple conservative management with worsening pain weakness and numbness in her upper extremity.? Patient has been having difficulty performing activity of daily living.? After discussing risks benefits of treatment options, patient elected proceed with surgery. Surgeon: Lenin Tran Nutrition Services Associate: Suzi Curtis Click Yes if Unassisted: No Anesthesia Type: General Operative Notes Closure Type: primary Specimen(s): none sent Prosthetic devices, grafts, tissues, transplants, or devices: Globus Extend Plate, Titanium cages Applied: catheter Estimated Blood Loss (mL): 40 Blood products transfused: none Patient admitted to the hospital for the above-mentioned procedure. Patient consented to the same. Patient underwent cervical fusion December 31, 2001. Patient back in her room recovering well as in stable condition. Patient has been slow to progress as she has declined physical therapy and occupational therapy stating she is in pain and fatigued. Swallow evaluation performed by speech therapy yesterday recommended puree, thin liquids. Eat only when alert, remain upright 90? during all oral intake, upright position at least 30 minutes after meals. Medications to be crusting carrier. Patient will be discharged home today in stable condition. Exam Vital Signs (past 8 hours): - 01/03/22 00:57 01/03/22 04:43 Temperature 97.9 F 98.1 F Pulse Rate 81 80 Respiratory Rate 18 18 Blood Pressure 124/61 161/84 H Pulse Oximetry 93 96 Oxygen Flow Rate 0 0 Oxygen Delivery Method Room Air Oxygen Flow Rate 0 Narrative Exam Narrative: 66-year-old female resting on her side in no apparent distress. Soft collar is on. Dressing is Clean, dry, intact.. Motor functions intact bilateral upper extremities. Const General: cooperative and comfortable Nutritional Appearance: average body habitus Orientation: alert Resp Effort & Inspection: normal respiratory effort and able to speak in complete sentences Objective Labs Result Diagrams: 01/01/22 08:37 [facility] Medical History Acid reflux Anxiety Breast cancer, left (~2019) Cervical spinal stenosis Depression Diverticulitis Easy bruisability High cholesterol Nerve pain Sciatica Surgical History History of hysterectomy (2006) Hx of bilateral cataract extraction Hx of breast reduction, elective Hx of colonoscopy (06/06/21) Hx of tubal ligation Social History household members: significant other and none Smoking Status: Never smoker alcohol intake: former Discharge Assessment & Plan Assessment and Plan Assessment: Stable Plan of Treatment: Soft collar for comfort, limit bending, twisting, lifting Multimodal pain management Puree ? ? ? Recommended Liquids? Thin ? ? ? Safety Precautions/Swallowing? Feed only when alert,Remain ? Recommendations ? upright (90 degrees) during ? all oral intake,Upright ? position at least 30 minutes ? after meals Discharge home today in stable condition Discharge Plan Discharge Plan Patient Disposition: Home Discharge orders & Medications Prescriptions: New acetaminophen 325 mg Tablet 650 mg PO Q6HR PRN (Reason: Pain, Mild (1-3)) Qty: 60 0RF docusate sodium 100 mg Capsule 100 mg PO BID Qty: 30 0RF oxycodone 10 mg Tablet 10 mg PO Q3HR PRN (Reason: Pain, Severe (7-10)) Qty: 60 0RF Continued sertraline 100 mg Tablet 100 mg PO DAILY clonazepam 1 mg Tablet 1 mg PO BID pantoprazole 40 mg Tablet,Delayed Release (Dr/Ec) 40 mg PO DAILY Discontinued acetaminophen 500 mg Tablet 500 mg PO DAILY PRN (Reason: Pain) naproxen sodium [Aleve] 220 mg Capsule 220 mg PO DAILY PRN (Reason: Pain, headache) Follow up/Referrals: Lenin Tran MD [Physician] - (10-14 days for postoperative visit) Feli Vicente MD [Primary Care Provider] - Diet/Activity/Treatments Diet: Diet as Tolerated Diet comment: Per swallow evaluation recommended is puree, thin liquids Activity: Limit bending, twisting, lifting Other treatments: Medications: -OTC Tylenol 500 mg 1 tablet every 4 hours as needed for pain/fever. Max 6 tablets per day. -Oxycodone 5 mg take 1-2 tablets every 4 hours as needed for moderate-severe pain (narcotic pain medication). -As needed medications: -Ducolax and /or MiraLax as needed for constipation from narcotic pain medications. -Pepcid AC as needed for stomach upset. -Vistaril (hydroxyine) 25mg 1 tab every 4 hours as needed for spasms/pain/nausea. Diet: -Stick with soft, easy to swallow foods for the first few days. Dressing/Wound care: -Keep dressing in place until postoperative follow-up office visit. -Okay to shower. Keep wound out of direct water stream. Can use PressNSeal plastic wrap to protect from shower stream. No soaking or submerging until all the scabs fall off (approximately 6 weeks). -Please call the office if dressing becomes wet, soiled, or saturated. Activities: -Wear collar when sitting upright or standing. May take off to eat and shower. Can sleep without collar, but you may find it more comfortable to wear while sleeping. -Limit bending, lifting, twisting. -Continue with home exercises as directed by your physical therapist. -Ice your incision as needed for pain/inflammation/swelling. You can heat to the back of your neck as needed for pain. Protect your skin with a folded pillowcase. -Incentive Spirometer (breathing device from hospital): 5-10xs every hour while awake for the first 1-2 weeks. Follow-up: -Follow-up with your surgeon or PA in the office in 10-14 days after surgery. -Follow-up with your surgeon 6 weeks postoperatively. Call the office if you have chest pain, shortness of breath, significant swelling that will not resolve with elevating, fever over 101?, significantly worsening pain, or are concerned you might need to go to the Emergency Room. [facility] Orthopedics: [phone] Skin/Wound/Dressing Care Report to your healthcare provider any signs of infection, such as:: chills, fever, night sweats, unusual drainage and unusual redness Dressing: Keep dressing clean and dry, soft collar for comfort Visit Report/Discharge Packet Instructions: DI for Heart Failure, DI for Prescription Opioid Use, DI for Anterior Cervical Discectomy and Fusion Stand Alone Forms: Surgery Discharge Discharge Data Primary Care Provider: Feli Vicente Quality VTE Deep Vein Thrombosis/Pulmonary Embolism Present on Admission: No
[2022-01-03] MEDS: ONDANSETRON 4 MG/2 ML INJ IV (09:13)
--- NOTE | 2022-01-03 11:09 | CM.DPNOTE ---
DC Note DC home today w/family with close outpatient f/u. No further needs identified from this CM team JW
--- NOTE | 2022-01-03 11:52 | PT-IP ANOTE ---
Attempted to see pt twice this AM, pt refused PT both times. Pt states she feels she will be fine at home w/ support from her SO.
[2022-01-03 12:00] VITALS: BP 161/93; PULSE 77; RESP 16; TEMP 36.4; O2SAT 96
--- NOTE | 2022-01-03 12:33 | OT.IPNOTE ---
Attempted to see pt for OT and not wanting to shower prior to going home. Pt refusing OT treatment and looking to go home later today.
--- NOTE | 2022-01-03 14:26 | PC.NURSE ---
Day Shift Pt discharged to home via personal vehicle with spouse to ER exit via wheelchair. Pt had all personal belongings in their possession. Pain medication was given just prior to transport. Pt and spouse received all paperwork and had all questions answered, in detail instructions about post opt care and what S/S to look out for and contact number to [facility] to f/u with care.
== END 2022-01-03 14:30 | disposition home or self-care (01) | DRG 473 ==
PROVIDERS: Physician Assistant; Admitting Provider Orthopaedic Surgery Orthopaedic Surgery of the Spine; PCP Family Medicine; Referring Provider Orthopaedic Surgery Orthopaedic Surgery of the Spine; Visit Provider Orthopaedic Surgery Orthopaedic Surgery of the Spine
PROC: 0RG20A0 Fusion of 2 or more Cervical Vertebral Joints with Interbody Fusion Device, Anterior Approach, Anterior Column, Open Approach (ICD-10-PCS; principal; 2021-12-31 13:15)
DX: M47.12 Other spondylosis with myelopathy, cervical region (principal); M48.02 Spinal stenosis, cervical region; F32.A Depression, unspecified; F41.9 Anxiety disorder, unspecified; K21.9 Gastro-esophageal reflux disease without esophagitis; R07.0 Pain in throat; Z20.822 Contact with and (suspected) exposure to COVID-19
CPT/HCPCS: 00670; 36415; 72040; 76000; 85014; 85018; 87635; 92610; 94760; 97161; 97165; 97530; 97535; C9803; C1713; J0171; J0690; J1100; J1170; J2250; J2405; J2704; J3010; J3490